=== PATIENT | female | born 1950 | race Caucasian/White ===

== ENCOUNTER 2017-01-28 22:56 | Emergency (ER) | payer OTHER ==
[~2017-01-28] VITALS: Ht 154.9 cm; Wt 81.7 kg
[~2017-01-28 22:56] MED LIST: AMBIEN5 MG PO; ASPIRIN EC325 MG PO; B COMPLETE1 EACH PO; BIOTIN1 MG PO; CIPRO500 MG PO; CLONIDINE HCL0.1 MG PO; LEVOTHYROXINE25 MCG PO; METOPROLOL SUCC50 MG PO; METRONIDAZOLE500 MG PO; OMEPRAZOLE20 MG PO; TERBINAFINE HC250 MG PO; VITAMIN D5000 UNIT PO; ZOFRAN ODT4 MG PO
[2017-01-28] MEDS ORDERED: SERTRALINE HCL100 MG PO (23:06)
[2017-01-28] MEDS ORDERED: TRAZODONE HCL100 MG PO (23:06)
--- NOTE | 2017-01-29 22:55 | EKG ---
[facility] [address] [facility] [place] [address] Signed Normal sinus rhythm Nonspecific T wave abnormality Abnormal ECG No previous ECGs available Confirmed by MARYA BARDALES MD ([id number]) on 01/29/2017 10:54:52 PM Electronically Signed By: MARYA BARDALES MD 01/29/17 2255 PATIENT NAME: OTBI ONEILL Electrocardiogram DATE OF : 48 PHYSICIAN: MARYA BARDALES MD REPORT #: [id number] REPORT IS CONFIDENTIAL AND NOT TO BE RELEASED WITHOUT AUTHORIZATION
== END 2017-01-29 01:57 | disposition home or self-care (01) ==
LOC: ED 22:56
DX: M54.6 Pain in thoracic spine (principal); I10 Essential (primary) hypertension; E78.00 Pure hypercholesterolemia, unspecified; Z79.82 Long term (current) use of aspirin
CPT/HCPCS: 71010; 80053; 84484; 85025; 93005; 93010; 99284

== ENCOUNTER 2022-07-10 10:45 | Emergency (ER) | payer MEDICARE, OTHER ==
[~2022-07-10] VITALS: Ht 154.9 cm; Wt 86.9 kg
[~2022-07-10 10:45] MED LIST changes: +SERTRALINE HCL100 MG PO; +TRAZODONE HCL100 MG PO
--- OUTSIDE RECORDS SUMMARY | 2022-07-10 10:49 | XMS ---
PreManage Notification: TOBI ONEILL [employer] Events No recent Security Events currently on file [facility] There are no care providers on record at this time. Alejandra has no Care Guidelines for this patient. Arturo VISIT COUNT (12 MO.) 1 DENNYS [facility] TOTAL 1 NOTE: Visits indicate total known visits. ED/UCC VISIT TRACKING (12 MO.) 07/10/2022 10:46 DENNYS [facility] [place] TYPE: Emergency COMPLAINT: - HIGH B/P, HEADACHE, PUFFY EYES INPATIENT VISIT TRACKING (12 MO.) No inpatient visits to display in this time frame [email or web address]
[2022-07-10] MEDS ORDERED: CARVEDILOL25 MG PO (12:04)
== END 2022-07-10 12:14 | disposition home or self-care (01) ==
LOC: ED 10:45
DX: R51.9 Headache, unspecified (principal); I10 Essential (primary) hypertension; Z79.82 Long term (current) use of aspirin; Z79.899 Other long term (current) drug therapy
CPT/HCPCS: 99283

== ENCOUNTER 2023-12-30 14:10 | Emergency (ER) | payer MEDICARE, OTHER ==
[~2023-12-30] VITALS: Ht 154.9 cm; Wt 70.8 kg
[~2023-12-30 14:10] MED LIST changes: +CARVEDILOL25 MG PO
[2023-12-30] MEDS ORDERED: ZEPBOUND7.5 MG/0.5 SUB-Q (15:04)
[2023-12-30] MEDS ORDERED: PHENTERMINE H37.5 M1 PO (15:05)
[2023-12-30] MEDS ORDERED: TOPIRAMATE25 MG PO (15:05)
[2023-12-30] MEDS ORDERED: ESTRADIOL1 EAC8 TD (15:06)
[2023-12-30] MEDS ORDERED: [UNRECOGNIZED DRUG - MIXTURE] (15:07)
[2023-12-30] MEDS ORDERED: PROGESTERONE 150 MG (15:07)
[2023-12-30 15:25] VITALS: BP 146/83
== END 2023-12-30 15:35 | disposition home or self-care (01) ==
LOC: ED 14:10
DX: K59.00 Constipation, unspecified (principal); I10 Essential (primary) hypertension; Z79.82 Long term (current) use of aspirin; Z79.899 Other long term (current) drug therapy
CPT/HCPCS: 99283

== ENCOUNTER 2024-12-21 17:16 | Emergency (ER) | payer MEDICARE ==
[~2024-12-21] VITALS: Ht 154.9 cm; Wt 85.0 kg
[~2024-12-21 17:16] MED LIST changes: +ESTRADIOL1 EAC8 TD; +PHENTERMINE H37.5 M1 PO; +PROGESTERONE 150 MG; +TOPIRAMATE25 MG PO; +ZEPBOUND7.5 MG/0.5 SUB-Q; +[UNRECOGNIZED DRUG - MIXTURE]
[2024-12-21 17:39] LABS: BASOPHILS 0.5 % (0.1-1.2); EOSINOPHILS 3.9 % (0.7-5.8); LYMPHOCYTES 19.2 % (19.3-51.7); MCH 30.1 PG (25.6-32.2); MCHC 33.9 g/dL (32.2-35.5); MCV 88.7 fL (79.4-94.8); MONOCYTES 9.1 % (4.7-12.5); NEUTROPHILS 67.1 % (34.0-71.1); RBC 4.59 M/uL (3.93-5.22)
[2024-12-21] MEDS ORDERED: NITROGLYCERIN 0.4 MG SUBL SL PRN (17:45)
[2024-12-21] MEDS ORDERED: ASPIRIN 81 MG CHEW PO ONE (17:45)
[2024-12-21 17:51] LABS: ALT (SGPT) 12.0 U/L (14-59); AST (SGOT) 11.0 U/L (15-37); GLOMERULAR FILTRATION RATE,EST 83.0 mL/min (>60); PROTEIN, TOTAL 7.3 g/dL (6.4-8.2); UREA NITROGEN 10.0 mg/dL (7-18)
[2024-12-21] MEDS ORDERED: CYCLOBENZAPRINE10 MG PO (19:53)
[2024-12-21] MEDS ORDERED: CYCLOBENZAPRINE HCL 10 MG HOME.PACK PO ONE (20:00)
[2024-12-21] MEDS ORDERED: ENALAPRILAT DIHYDRATE 1.25 MG/ML VIAL IV ONE (20:15)
[2024-12-21 20:28] VITALS: BP 171/89
--- NOTE | 2024-12-24 16:03 | EKG ---
[facility] [address] [facility] [place] [address] Signed Normal sinus rhythm Normal ECG When compared with ECG of 28-JAN-2017 23:00, Nonspecific T wave abnormality no longer evident in Anterior leads Confirmed by Danish Ribeiro MD () on 12/24/2024 4:02:45 PM Electronically Signed By: DANISH RIBEIRO MD 12/24/24 1603 PATIENT NAME: MAITOBICHANDLER BUENROSTRO Electrocardiogram DATE OF : 48 PHYSICIAN: DANISH RIBEIRO MD REPORT #: [id number] REPORT IS CONFIDENTIAL AND NOT TO BE RELEASED WITHOUT AUTHORIZATION
== END 2024-12-21 20:28 | disposition home or self-care (01) ==
LOC: ED 17:16
PROVIDERS: Emergency Medicine
DX: M54.6 Pain in thoracic spine (principal); I10 Essential (primary) hypertension; Z79.82 Long term (current) use of aspirin; Z79.899 Other long term (current) drug therapy
CPT/HCPCS: 36415; 71045; 71275; 80053; 83735; 84484; 85025; 93005; 93010; 99284-25; A9270